=== PATIENT | female | born 1985 | race American Indian/Alaskan Native ===

== ENCOUNTER 2018-05-30 14:37 | Emergency (ER) | payer MEDICAID ==
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
--- NOTE | 2018-05-30 16:16 | Cat Scan Report ---
FINAL REPORT EXAM: CT HEAD/BRAIN WO CON HISTORY: headache, head injury TECHNIQUE: CT examination of the head without IV contrast PRIORS: None. FINDINGS: Moderate mucosal thickening ethmoid sinuses and frontoethmoidal recess, more on the left. No acute air-fluid level visualized in the included air-filled sinuses. Bone windows demonstrate no acute fracture. The brain is without mass, mass effect, hemorrhage, or acute infarct. There is no extra-axial intracranial bleed, brain bleed, or midline shift. The ventricles and sulci are age-appropriate. IMPRESSION: No acute CVA, intracranial bleed, or brain mass Paranasal sinus disease without visible acute fluid level
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
[2018-05-30 16:56] LABS: HCG Qualitative,Urine Negative (Negative)
[2018-05-30 17:45] VITALS: BP 122/83
== END 2018-05-30 17:30 | disposition home or self-care (01) ==
LOC: ED 14:37
DX: S09.90XA Unspecified injury of head, initial encounter (principal); S00.81XA Abrasion of other part of head, initial encounter; F17.200 Nicotine dependence, unspecified, uncomplicated; Y04.8XXA Assault by other bodily force, initial encounter; Y93.89 Activity, other specified; Y99.8 Other external cause status; Y92.019 Unspecified place in single-family (private) house as the place of occurrence of the external cause
CPT/HCPCS: 70450; 70486; 81025

== ENCOUNTER 2018-05-31 15:07 | Emergency (ER) | payer MEDICAID ==
[2018-05-31 15:31] VITALS: BP 131/73
[2018-05-31] MEDS ORDERED: DELTASONE PO ONE (17:13)
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
[2018-05-31] MEDS ORDERED: BACTRIM DS PO ONE (17:14)
== END 2018-05-31 17:28 | disposition home or self-care (01) ==
LOC: ED 15:07
DX: S00.81XA Abrasion of other part of head, initial encounter (principal); S01.501D Unspecified open wound of lip, subsequent encounter; K13.0 Diseases of lips; F17.200 Nicotine dependence, unspecified, uncomplicated; Y04.0XXA Assault by unarmed brawl or fight, initial encounter; Y93.89 Activity, other specified; Y92.89 Other specified places as the place of occurrence of the external cause; Y99.8 Other external cause status
CPT/HCPCS: 99282; J7512

== ENCOUNTER 2018-10-21 21:21 | Emergency (ER) | payer MEDICAID, OTHER ==
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
[2018-10-21] MEDS ORDERED: IBUPROFEN PO ONE (22:11)
[2018-10-21] MEDS ORDERED: ULTRAM PO ONE (22:12)
[2018-10-21 22:16] LABS: Bilirubin,Urine NEG (Negative); Blood,Urine NEG (Negative); Color,Urine Yellow (Yellow); Mucus,Urine 2+ /HPF
[2018-10-21 22:17] VITALS: BP 121/82
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
--- NOTE | 2018-10-22 00:22 | XRay Report ---
FINAL REPORT EXAM: XR CHEST ROUTINE 2V HISTORY: injury TECHNIQUE: 2 views of the chest. PRIORS: None. FINDINGS: The cardiomediastinal silhouette appears normal. The lungs are clear. The bones and soft tissues are unremarkable. IMPRESSION: No evidence of acute cardiopulmonary disease
--- NOTE | 2018-10-22 00:26 | XRay Report ---
FINAL REPORT EXAM: XR SHOULDER 2+V LT HISTORY: injury TECHNIQUE: 3 views of the left shoulder PRIORS: None. FINDINGS: The glenohumeral and acromioclavicular joints are normally aligned. The bones are normally mineralize d. The soft tissues are unremarkable. IMPRESSION: Normal left shoulder.
== END 2018-10-22 00:40 | disposition home or self-care (01) ==
LOC: ED 21:21
DX: S40.012A Contusion of left shoulder, initial encounter (principal); S16.1XXA Strain of muscle, fascia and tendon at neck level, initial encounter; S20.219A Contusion of unspecified front wall of thorax, initial encounter; V87.8XXA Person injured in other specified noncollision transport accidents involving motor vehicle (traffic), initial encounter; Y93.89 Activity, other specified; Y92.89 Other specified places as the place of occurrence of the external cause; Y99.8 Other external cause status
CPT/HCPCS: 36415; 70450; 71046; 72125; 81001; 84703